=== PATIENT | female | born 1970 | race Caucasian/White ===

== ENCOUNTER 2019-08-29 10:58 | Inpatient (IN) | payer OTHER, MEDICAID, SELFPAY ==
[2019-08-29] VITALS (12 sets, daily range): BP systolic 114–149; BP diastolic 59–84; PULSE 99–133; RESP 18–29; TEMP 37.7–38.9; O2SAT 93–97; BMI 42.0
--- NOTE | 2019-08-29 11:08 | ED_ITS ---
HPI - Chest Pain General Chief Complaint: Upper Respiratory Symptoms Stated Complaint: Chest/Back Pain Time Seen by Provider: 08/29/19 11:06 Source: patient, EMS and old records reviewed Mode of arrival: EMS Limitations: no limitations History of Present Illness HPI narrative: 49-year-old female comes emergency department complaint of fevers that started today. Patient start having chills last night. She has pain in the left side of her chest kind of in the upper into the back. She states constant. The little bit positional she sits in a certain way it makes it more comfortable. She has felt short of breath. She has had a runny nose and a cough which she states has been nonproductive. She has felt a little bit wheezy. No nausea, no vomiting, no diarrhea constipation. No urinary changes she has not had frequency, dysuria urgency. She has chronic right hip and takes anti-inflammatories for this. She has not any swelling in her extremities. No rashes or skin changes. Patient states she has a history of hypertension which she is not taking medication for, she states she doesn't trust pills. She takes an anti-inflammatory pill for her right hip and has a history of SCFE. Patient states that she had surgery on her hip at age 9 and 13, she has had a tubal ligation and kidney stones. She does smoke tobacco about half pack daily, no alcohol or illicit. Her primary care is Dr. Mcgill. Related Data Home Medications Medication Instructions Recorded Confirmed No Known Home Medications 08/29/19 08/29/19 Allergies Allergy/AdvReac Type Severity Reaction Status Date / Time No Known Drug Allergies Allergy Verified 08/29/19 11:13 Review of Systems Review of Systems ROS Unobtainable: All systems reviewed & are unremarkable except as noted in HPI and below Patient History Medical History (Updated 08/29/19 @ 12:02 by Lauren Todd DO) Chronic right hip pain (Acute) H/O slipped capital femoral epiphysis (SCFE) (Acute) Hypertension (Acute) Social History household members: family Smoking Status: Current every day smoker alcohol intake: former Smoking Status: Current every day smoker Substance Use Type: does not use Exam Narrative Exam Narrative: GEN: Obese female, alert and oriented x 3, patient appears to be in mild distress. Patient feels mildly warm to touch. HEENT: Atraumatic, pupils are equal round reactive to light, extraocular movements are intact, nares are clear, TMs are clear with no fluid, there is no conjunctival pallor. Throat is clear without any exudates, erythema, tonsillar enlargement or uvular deviation HEART: Regular rate and rhythm without murmur, clicks, rubs. Chest is nontender to palpation. LUNGS:Lungs clear to auscultation, no wheezes, rales, crackles, chest moves symmetrically, no tachypnea. No accessory muscle use. ABD:bowel sounds normal, soft, non-tender, no guarding, rebound, rigidity, no masses noted, no hepatosplenomegaly :No CVA tenderness BACK: No cervical, thoracic or lumbar vertebral point tenderness. MSCL: Non-tender. NEURO:CN 2-12 intact, sensation normal SKIN: No rash. No petechiae. No erythema. Initial Vital Signs Initial Vital Signs: Vital Signs Temperature 100.3 F H 08/29/19 11:00 Pulse Rate 104 H 08/29/19 11:00 Respiratory Rate 18 08/29/19 11:00 Blood Pressure 149/84 H 08/29/19 11:00 Pulse Oximetry 94 08/29/19 11:00 Course Orders Ordered: ED Orders 08/29/19 11:05 Influenza A & B (PCR) Stat 08/29/19 11:18 XR chest 2V Stat 08/29/19 11:26 Urine Culture Stat Urine Microscopic Stat 08/29/19 12:03 Complete Blood Count AUTO DIFF Stat Comprehensive Metabolic Panel Stat Lactate (Lactic Acid) Stat Troponin & CK Cardiac Panel Stat 08/29/19 13:21 Blood Culture Stat Acetaminophen (Tylenol) 650 mg PO Q6HR PRN PRN Reason: Fever/Mild Pain (1-3) Heparin Sodium (Porcine) (Heparin) 5,000 unit SUBCUT BID KENNETH Dextrose/Sodium Chloride (Dextrose 5%-0.9% Ns) 1,000 mls @ 100 mls/hr IV CONT KENNETH Last Admin: 08/29/19 17:47 Dose: 100 mls/hr Documented by: KKNOTT Ceftriaxone Sodium/Dextrose (Rocephin) 1 gm in 50 mls @ 100 mls/hr IV Q24H KENNETH Azithromycin 500 mg/ Dextrose 250 mls @ 250 mls/hr IV Q24H KENNETH Ibuprofen (Advil) 600 mg PO Q6HR PRN PRN Reason: Fever/Mild Pain (1-3) Ketorolac Tromethamine (Toradol) 15 mg IV Q6HR PRN PRN Reason: Pain, Moderate (4-6) Stop: 09/03/19 17:35 Ondansetron HCl (Zofran) 4 mg IV Q8HR PRN PRN Reason: Nausea And Vomiting Discontinued Medications Acetaminophen (Tylenol) 650 mg PO NOW ONE Stop: 08/29/19 11:27 Last Admin: 08/29/19 12:38 Dose: 650 mg Documented by: DAVID Azithromycin (Zithromax) 500 mg PO NOW ONE Stop: 08/29/19 12:29 Last Admin: 08/29/19 13:20 Dose: 500 mg Documented by: SOFIA Sodium Chloride (Normal Saline 0.9%) 1,000 mls @ 1,000 mls/hr IV BOLUS ONE Stop: 08/29/19 12:17 Last Infusion: 08/29/19 14:48 Dose: 0 mls/hr Documented by: Admin: 08/29/19 12:38 Dose: 1,000 mls/hr Documented by: DAVID Ceftriaxone Sodium/Dextrose (Rocephin) 1 gm in 50 mls @ 100 mls/hr IV NOW ONE Stop: 08/29/19 12:57 Last Infusion: 08/29/19 14:35 Dose: 0 mls/hr Documented by: Admin: 08/29/19 13:19 Dose: 100 mls/hr Documented by: SOFIA Vital Signs Vital signs: Vital Signs - 8 hr 08/29/19 11:00 08/29/19 11:56 08/29/19 12:12 Temperature 100.3 F H Pulse Rate 104 H 105 H 106 H Respiratory Rate 18 29 H 24 Blood Pressure 149/84 H Blood Pressure [Right Arm] 140/70 130/60 Pulse Oximetry 94 95 08/29/19 13:36 08/29/19 14:30 08/29/19 14:48 Temperature 100.0 F H 100.0 F H Pulse Rate 133 H 99 H Respiratory Rate 29 H 22 Blood Pressure Blood Pressure [Right Arm] 132/71 Pulse Oximetry 93 96 MDM - Chest Pain Lab Data Attestation: I reviewed the patient's lab results. Result diagrams: 08/29/19 12:03 08/29/19 12:03 Labs: Lab Results 08/29/19 08/29/19 08/29/19 Range/Units 11:05 11:26 12:03 WBC 19.3 H (4.5-11.0) X10^3/uL RBC 5.17 (4.0-5.2) X10^6/uL Hgb 14.3 (12.0-16.0) g/dL Hct 42.2 (36-46) % MCV 81.7 (80-100) fL MCH 27.6 (26-34) PG MCHC 33.8 (30-36) % RDW 15.8 H (11.6-14.8) % Plt Count 241 (150-400) X10^3/uL Neut % (Auto) 93.3 H (50-75) % Lymph % (Auto) 3.9 L (25-40) % [place] % (Auto) 2.5 L (3-14) % Eos % (Auto) 0.0 L (2-4) % Baso % (Auto) 0.3 (0-2) % Neut # (Auto) 59663 H (2674-2017) /uL Lymph # (Auto) 800 L (6783-4691) /uL [place] # (Auto) 500 (0-900) /uL Eos # (Auto) 0 (0-450) /uL Baso # (Auto) 100 (0-100) /uL Sodium (137-145) mmol/L Potassium (3.4-5.1) mmol/L Chloride (98-107) mmol/L Carbon Dioxide (22-32) mmol/L BUN (7-17) mg/dL Creatinine (0.52-1.04) mg/dL Estimated GFR (>60) mL/min BUN/Creatinine Ratio (6-22) Glucose (70-100) mg/dL Lactate (0.7-2.1) mmol/L Calcium (8.4-10.2) mg/dL Total Bilirubin (0.2-1.3) mg/dL AST (14-36) IU/L ALT (<35) IU/L Alkaline Phosphatase (38-126) U/L Total Creatine Kinase (30-135) U/L CK-MB (CK-2) CK-MB (CK-2) Rel Index Troponin I (0.01-0.034) ng/mL Total Protein (6.3-8.2) g/dL Albumin (3.5-5.0) g/dL Globulin (1.7-4.1) g/dL Albumin/Globulin Ratio (1.0-2.8) Urine RBC 5-10/hpf H (0-5/HPF) Urine WBC 0-1/hpf (0-5/HPF) Ur Squamous Epith Cells 1-5 /hpf (0-5/HPF) Urine Bacteria Few (2-10) H (None) Urine Mucus 1+ H (Negative) Ur Culture Indicated? Specimen cultured Influenza A (RT-PCR) Flu a negative (NEGATIVE) Influenza B (RT-PCR) Flu b negative (NEGATIVE) 08/29/19 08/29/19 Range/Units 12:03 12:03 WBC (4.5-11.0) X10^3/uL RBC (4.0-5.2) X10^6/uL Hgb (12.0-16.0) g/dL Hct (36-46) % MCV (80-100) fL MCH (26-34) PG MCHC (30-36) % RDW (11.6-14.8) % Plt Count (150-400) X10^3/uL Neut % (Auto) (50-75) % Lymph % (Auto) (25-40) % [place] % (Auto) (3-14) % Eos % (Auto) (2-4) % Baso % (Auto) (0-2) % Neut # (Auto) (8873-2345) /uL Lymph # (Auto) (0847-8680) /uL [place] # (Auto) (0-900) /uL Eos # (Auto) (0-450) /uL Baso # (Auto) (0-100) /uL Sodium 138 (137-145) mmol/L Potassium 3.9 (3.4-5.1) mmol/L Chloride 104 (98-107) mmol/L Carbon Dioxide 22 (22-32) mmol/L BUN 12 (7-17) mg/dL Creatinine 0.50 L (0.52-1.04) mg/dL Estimated GFR > 60.0 (>60) mL/min BUN/Creatinine Ratio 24.0 H (6-22) Glucose 129 H (70-100) mg/dL Lactate 1.7 (0.7-2.1) mmol/L Calcium 8.9 (8.4-10.2) mg/dL Total Bilirubin 1.3 (0.2-1.3) mg/dL AST 24 (14-36) IU/L ALT 25 (<35) IU/L Alkaline Phosphatase 71 (38-126) U/L Total Creatine Kinase 86 (30-135) U/L CK-MB (CK-2) TNP CK-MB (CK-2) Rel Index TNP Troponin I < 0.012 (0.01-0.034) ng/mL Total Protein 7.2 (6.3-8.2) g/dL Albumin 4.2 (3.5-5.0) g/dL Globulin 3.0 (1.7-4.1) g/dL Albumin/Globulin Ratio 1.4 (1.0-2.8) Urine RBC (0-5/HPF) Urine WBC (0-5/HPF) Ur Squamous Epith Cells (0-5/HPF) Urine Bacteria (None) Urine Mucus (Negative) Ur Culture Indicated? Influenza A (RT-PCR) (NEGATIVE) Influenza B (RT-PCR) (NEGATIVE) Urine Dip Bedside Urine Glucose Negative Bedside Urine Bilirubin + 1 Bedside Urine Ketone - Negative Urine Specific [place] 1.015 Bedside Urine Occult Blood + Bedside Urine pH 7.0 Bedside Urine Protein +/- 15 Bedside Urine Urobilinogen +/- 1mg Bedside Urine Nitrite - Negative Bedside Urine Leukocytes +/- 15 Esterase Imaging Data Chest x-ray: Radiologist's impression: [address] [address] XRay Report Signed Patient: Kyler Singleton#: [id number] : 1970Acct:[id number] Age/Sex: 49 / FDate of Service: 08/29/19 Loc: ED Accession Number: [id number] Procedure: XR chest 2V Ordering Provider: Lauren Todd D.O. PROCEDURE: XR CHEST 2V INDICATIONS: fever, pain chest/back, cough TECHNIQUE: 2 views of the chest were acquired. COMPARISON: None. FINDINGS: Surgical changes and devices: None. Lungs and pleura: Subtle airspace disease is identified at the left lung base adjacent to the diaphragm. No lobar consolidation, effusion, or pneumothorax is evident. Mediastinum: Mediastinal contours are normal. Heart size is normal. Bones and chest wall: No suspicious bony abnormalities. Soft tissues appear unremarkable. IMPRESSION: Left basilar pneumonia versus atelectasis. Followup imaging is recommended in 4-6 weeks to document complete resolution. Dictated by: Jayden Olivia M.D. on 08/29/2019 at 10:45 Approved by: Jayden Olivia M.D. on 08/29/2019 at 10:45 ECG Data Attestation: I personally reviewed and interpreted this ECG as follows: Prior ECG tracings: not available for review Interpretation: Sinus tachycardia rate of 104 P are 124 QRS of 103 QTC of 372. Patient has RSR in 2 with a Q-wave in 3 and AVF. No priors available for comparison. MDM Narrative Medical decision making narrative: Patient comes in fever of 100.3 with a new onset of chills, cough and feeling unwell. Patient's white count 19, temperature improved. Patient has not been hypoxic but would watch her in the department heart rate goes up to 1/3 inch comes quite tachypneic. Patient does smoke. Influenza was negative. Chest x-ray is positive for pneumonia. Tropon in is negative. Discussed with Dr. Dennis. Discharge Plan Departure Patient Disposition: Admitted as Observation Clinical Impression: Pneumonia Discharge Date/Time: 08/29/19 15:45 Admit Date/Time: 08/29/19 14:51 Admit Provider: Cecil Dennis
--- NOTE | 2019-08-29 11:18 | DI.RAD.S_ITS ---
PROCEDURE: XR CHEST 2V INDICATIONS: fever, pain chest/back, cough TECHNIQUE: 2 views of the chest were acquired. COMPARISON: None. FINDINGS: Surgical changes and devices: None. Lungs and pleura: Subtle airspace disease is identified at the left lung base adjacent to the diaphragm. No lobar consolidation, effusion, or pneumothorax is evident. Mediastinum: Mediastinal contours are normal. Heart size is normal. Bones and chest wall: No suspicious bony abnormalities. Soft tissues appear unremarkable. IMPRESSION: Left basilar pneumonia versus atelectasis. Followup imaging is recommended in 4-6 weeks to document complete resolution. Dictated by: Jayden Olivia M.D. on 08/29/2019 at 10:45 Approved by: Jayden Olivia M.D. on 08/29/2019 at 10:45
[2019-08-29 12:04] LABS: Influenza A - CEPHEID Flu A NEGATIVE (NEGATIVE); Influenza B - CEPHEID Flu B NEGATIVE (NEGATIVE)
[2019-08-29 12:06] LABS: RBC Urine 5-10/HPF (0-5/HPF); Squamous Epithelial Cell Urine 1-5 /HPF (0-5/HPF); WBC Urine 0-1/HPF (0-5/HPF)
[2019-08-29 12:07] LABS: Bacteria Urine Few (2-10); Culture Indicated Urine Specimen Cultured; Mucus Urine 1+ (Negative)
[2019-08-29 12:13] LABS: Add Manual Diff / Slide Review NO; Basophils Absolute Auto 100 /uL (0-100); Basophils Percent Auto 0.3 % (0-2); Eosinophils Absolute Auto 0 /uL (0-450); Hematocrit 42.2 % (36-46); Hemoglobin 14.3 g/dL (12.0-16.0); Lymphocytes Absolute Auto 800 /uL (1100-4500); Lymphocytes Percent Auto 3.9 % (25-40); Mean Corpuscular HGB Conc 33.8 % (30-36); Mean Corpuscular Hemoglobin 27.6 PG (26-34); Mean Corpuscular Volume 81.7 fL (80-100); Monocytes Absolute Auto 500 /uL (0-900); Monocytes Percent Auto 2.5 % (3-14); Neutrophils Absolute Auto 18000 /uL (1500-7000); Neutrophils Percent Auto 93.3 % (50-75); Platelet Count 241 X10^3/uL (150-400); Red Blood Cell Count 5.17 X10^6/uL (4.0-5.2); Red Cell Distribution Width 15.8 % (11.6-14.8); White Blood Cell Count 19.3 X10^3/uL (4.5-11.0)
[2019-08-29 12:25] LABS: Lactate (Lactic Acid) 1.7 mmol/L (0.7-2.1)
[2019-08-29 12:27] LABS: Alanine Aminotransferase 25 IU/L (<35); Albumin 4.2 g/dL (3.5-5.0); Albumin Globulin Ratio 1.4 (1.0-2.8); Alkaline Phosphatase 71 U/L (38-126); Aspartate Aminotransferase 24 IU/L (14-36); Bilirubin Total 1.3 mg/dL (0.2-1.3); Blood Urea Nitrogen 12 mg/dL (7-17); Calcium 8.9 mg/dL (8.4-10.2); Carbon Dioxide 22 mmol/L (22-32); Chloride 104 mmol/L (98-107); Creatine Kinase 86 U/L (30-135); Estimated Glomerular Filt Rate > 60.0 mL/min (>60); Glucose 129 mg/dL (70-100); HEMOLYSIS 19 (0-50); Potassium 3.9 mmol/L (3.4-5.1); Sodium 138 mmol/L (137-145); Total Protein 7.2 g/dL (6.3-8.2)
[2019-08-29 12:38] LABS: Troponin I < 0.012 ng/mL (0.01-0.034)
[2019-08-29] MEDS: SODIUM CHLORIDE 0.9% 1,000 ML 1000 ML IV (12:38)
[2019-08-29] MEDS: ACETAMINOPHEN 325 MG TABLET 650 MG PO (12:38)
[2019-08-29] MEDS: CEFTRIAXONE 1 GM/50 ML FROZ.PIGGY IV (13:19)
[2019-08-29] MEDS: AZITHROMYCIN 250 MG TABLET 500 MG PO (13:20)
--- NOTE | 2019-08-29 17:33 | P.HP_ITS ---
History of Present Illness History of Present Illness Date Patient Seen: 08/29/19 Time Patient Seen: 17:33 Chief complaint: Chest/Back Pain Narrative: Samantha Singleton is a 49-year-old female with past medical history of hypertension, and right hip pain (SCFE) who presented with fevers and left-sided chest pain. Her fevers and left-sided chest pain started last night. Her chest pain is in the lower /lateral side of her left chest and radiates into the back. It is constant and when she lays on her left side is improved, she feels that is also somewhat worse when she takes a deep breath. She feels short of breath primarily due to the pain. She has had a runny nose and productive cough with yellow sputum over the past 5 days. She tried some [id number] pain relief at home but this did not help her symptoms much. She denies any nausea, vomiting, diarrhea, or constipation. She has had no urinary frequency or dysuria. She did not get her flu shot this year and she denies recent sick contacts. She has had no travel overseas. She denies diaphoresis. In the emergency room she had a borderline temperature to 100.3 F, and she was tachycardic when ambulatory but not hypoxic. She was mildly tachypneic at times into the mid 20s. Chest x-ray showed a left basilar pneumonia. Her laboratories revealed low leukocytosis to 19.3 with 93% neutrophils, chemistries show a mildly elevated glucose at 1:29 a.m. but was otherwise unremarkable. Troponin was negative. Flu swab was negative. UA showed 0 WBCs but was positive for leuk esterase, and the specimen was cultured. Patient was admitted under observation status for pneumonia. Patient History Medical History (Updated 08/29/19 @ 12:02 by Lauren Todd DO) Chronic right hip pain (Acute) H/O slipped capital femoral epiphysis (SCFE) (Acute) Hypertension (Acute) Family & Social History Social History: household members family Prior Living Arrangements House Safety & Behavioral: Feels Safe in Current Yes Environment Been Physically Hurt or No Threatened By a Person Suicide Plan Description No Plan Tobacco & Substance use: Tobacco type cigarettes Smoking Status Current every day smoker alcohol intake former alcohol intake frequency 0-2 drinks per day Substance Use Type does not use Meds Home Medications and Allergies Home Medications Medication Instructions Recorded Confirmed Type No Known Home Medications 08/29/19 08/29/19 History Allergies Allergy/AdvReac Type Severity Reaction Status Date / Time No Known Drug Allergies Allergy Verified 08/29/19 11:13 Review of Systems Review of Systems Narrative: All other systems reviewed with the patient and are negative unless otherwise stated. Exam Vital Signs (past 8 hours): - 08/29/19 11:00 08/29/19 11:56 08/29/19 12:12 Temperature 100.3 F H Pulse Rate 104 H 105 H 106 H Respiratory Rate 18 29 H 24 Blood Pressure 149/84 H Blood Pressure [Right Arm] 140/70 130/60 Pulse Oximetry 94 95 08/29/19 13:36 08/29/19 14:30 08/29/19 14:48 Temperature 100.0 F H 100.0 F H Pulse Rate 133 H 99 H Respiratory Rate 29 H 22 Blood Pressure Blood Pressure [Right Arm] 132/71 Pulse Oximetry 93 96 08/29/19 15:00 08/29/19 16:08 08/29/19 17:20 Temperature 102.0 F H 99.8 F H Pulse Rate 100 H 100 H Respiratory Rate 28 H 18 Blood Pressure 123/68 Blood Pressure [Right Arm] 114/59 L Pulse Oximetry 96 97 Oxygen Delivery Method Room Air Oxygen Flow Rate 0 Narrative Exam Narrative: GENERAL APPEARANCE: Acutely ill-appearing female, in left l ateral recumbent position, breathing shallowly but not in acute distress. SKIN: Inspection of the skin reveals no rashes, ulcerations or petechiae. HEENT: The sclerae were anicteric and conjunctivae were pink and moist. Extraocular movements were intact and pupils were equal, round with normal accom modation. External inspection of the ears and nose showed no scars, lesions, or masses. Lips, teeth, and gums showed normal mucosa. The oral mucosa was moist and the posterior pharynx is unremarkable. NECK: Supple and symmetric. There was no thyroid enlargement, and no tenderness, or masses were felt. No cervical adenopathy was palpable. CHEST: Normal AP diameter and normal contour without any kyphoscoliosis. LUNGS: Auscultation of the lungs revealed no wheezes, rhonchi, or rales. She had diminished breath sounds at the bilateral lung bases. CARDIOVASCULAR: There was a regular rate and rhythm without any murmurs, gallops, rubs. Peripheral pulses were 2+ and symmetric. ABDOMEN: Soft and nontender with normal bowel sounds. No ascites was noted. MUSCULOSKELETAL: There was no tenderness or effusions noted. Muscle strength and tone were normal. EXTREMITIES: No cyanosis, clubbing or edema. NEUROLOGIC: Alert and oriented x 3 however she is slow and groggy, she appears somewhat confused. Strength is +5/5 in the Upper Extremities and Lower Extremities Bilaterally but generally weak. Sensation to touch was normal bilaterally. Objective Imaging Chest x-ray: My impression: Left basilar pneumonia Radiologist's impression: IMPRESSION: Left basilar pneumonia versus atelectasis. Followup imaging is recommended in 4-6 weeks to document complete resolution. Labs Result Diagrams: 08/29/19 12:03 08/29/19 12:03 Labs: Laboratory Results - last 24 hr 08/29/19 08/29/19 08/29/19 11:05 11:26 12:03 WBC 19.3 H RBC 5.17 Hgb 14.3 Hct 42.2 MCV 81.7 MCH 27.6 MCHC 33.8 RDW 15.8 H Plt Count 241 Neut % (Auto) 93.3 H Lymph % (Auto) 3.9 L [place] % (Auto) 2.5 L Eos % (Auto) 0.0 L Baso % (Auto) 0.3 Neut # (Auto) 41648 H Lymph # (Auto) 800 L [place] # (Auto) 500 Eos # (Auto) 0 Baso # (Auto) 100 Sodium Potassium Chloride Carbon Dioxide BUN Creatinine Estimated GFR BUN/Creatinine Ratio Glucose Lactate Calcium Total Bilirubin AST ALT Alkaline Phosphatase Total Creatine Kinase CK-MB (CK-2) CK-MB (CK-2) Rel Index Troponin I Total Protein Albumin Globulin Albumin/Globulin Ratio Urine RBC 5-10/hpf H Urine WBC 0-1/hpf Ur Squamous Epith Cells 1-5 /hpf Urine Bacteria Few (2-10) H Urine Mucus 1+ H Ur Culture Indicated? Specimen cultured Influenza A (RT-PCR) Flu a negative Influenza B (RT-PCR) Flu b negative 08/29/19 08/29/19 12:03 12:03 WBC RBC Hgb Hct MCV MCH MCHC RDW Plt Count Neut % (Auto) Lymph % (Auto) [place] % (Auto) Eos % (Auto) Baso % (Auto) Neut # (Auto) Lymph # (Auto) [place] # (Auto) Eos # (Auto) Baso # (Auto) Sodium 138 Potassium 3.9 Chloride 104 Carbon Dioxide 22 BUN 12 Creatinine 0.50 L Estimated GFR > 60.0 BUN/Creatinine Ratio 24.0 H Glucose 129 H Lactate 1.7 Calcium 8.9 Total Bilirubin 1.3 AST 24 ALT 25 Alkaline Phosphatase 71 Total Creatine Kinase 86 CK-MB (CK-2) TNP CK-MB (CK-2) Rel Index TNP Troponin I < 0.012 Total Protein 7.2 Albumin 4.2 Globulin 3.0 Albumin/Globulin Ratio 1.4 Urine RBC Urine WBC Ur Squamous Epith Cells Urine Bacteria Urine Mucus Ur Culture Indicated? Influenza A (RT-PCR) Influenza B (RT-PCR) Assessment & Plan Assessment & Plan narrative: Samantha Singleton is a 49-year-old female with past medical history of hypertension (not currently on medical therapy) who was adm itted under observation status for pneumonia at this time. 1. Community-acquired pneumonia -patient not technically with fever but temp of 100.3 F. she appears acutely ill and has symptoms of pneumonia including productive cough, pleuritic chest pain, leukocytosis with a left shift, and an infiltrate on radiographic imaging. Her white blood cell count is further elevated. She is not hypoxic at this time. Her curb 65 is 1, however she appears very lethargic and acutely ill, in she is not keeping up with adequate intake currently. Her lactate is 1.7 and the rest of her chemistries are unrem arkable. -continue ceftriaxone azithromycin -obtain full respiratory panel -supplemental oxygen for O2 less than 90% -supportive care with antipyretics, Toradol for more severe pain -continue IV fluids -add procalcitonin to admission labs and continue to follow. 2. History of hypertension -patient with reported hypertension but not on medical therapy as she does not like taking medications. Patient is currently normotensive which may be in the setting of her infection. 3. Chronic right hip pain /SCFE, stable - continue home pain regimen DVT: Heparin subcu Code: Full Dispo: Admitted under observation status Quality VTE Deep Vein Thrombosis/Pulmonary Embolism Present on Admission: No
[2019-08-29] MEDS: DEXTROSE 5%-0.9% NS 1,000 ML 100 ML IV (17:47)
[2019-08-29] MEDS: IBUPROFEN 600 MG TABLET PO (18:50)
[2019-08-29 19:02] LABS: Procalcitonin 1.82 ng/mL (<0.5)
[2019-08-29] MEDS: HEPARIN 5,000 UNIT/ML VIAL 5000 UNIT SUBCUT (21:26)
[2019-08-29 23:37] LABS: Adenovirus Not Detected (Not Detect); Bordetella pertussis Not Detected (Not Detect); Chlamydophila pneumoniae Not Detected (Not Detect); Coronavirus 229E Not Detected (Not Detect); Coronavirus HKU1 Not Detected (Not Detect); Coronavirus NL 63 Not Detected (Not Detect); Coronavirus OC43 Not Detected (Not Detect); Human Metapneumovirus Not Detected (Not Detect); Human Rhinovirus/Enterovirus Not Detected (Not Detect); Influenza A Not Detected (Not Detect); Influenza B Not Detected (Not Detect); Mycoplasma pneumoniae Not Detected (Not Detect); Parainfluenza Virus 1 Not Detected (Not Detect); Parainfluenza Virus 2 Not Detected (Not Detect); Parainfluenza Virus 3 Not Detected (Not Detect); Parainfluenza Virus 4 Not Detected (Not Detect); Respiratory Syncytial Virus Not Detected (Not Detect)
[2019-08-30] VITALS (10 sets, daily range): BP systolic 135–157; BP diastolic 70–92; PULSE 79–88; RESP 16–18; TEMP 36.4–37.4; O2SAT 94–99
--- NOTE | 2019-08-30 01:45 | PC.NURSE ---
Patient is oriented but drowsy; has been asleep since prior to shift change. Breath sounds diminished but CTA with RA sat of 99%. States she does get SOB with exertion. Has cough but is non productive. HRR. BP 140/70 which patient states is baseline. Denies nausea. BT present and is passing flatus; does state she has not had much of an appetite recently. Voiding on toilet and denies dysuria, frequency or urgency; urine is clear but dark vanessa. Able to turn self in bed and walks to bathroom with cane and SBA; has limping type gait due to chronic hip problems. States right hip pain is currently 5/10 with movement but declines offer of pain medication as states pain is tolerable. Wearing bilateral calf SCD's. Fall risk score is moderate; bed alarm is activated. Patient's mom, Marcos, rooming in.
[2019-08-30] MEDS: DEXTROSE 5%-0.9% NS 1,000 ML 100 ML IV ×2 (03:49→18:28)
[2019-08-30 04:58] LABS: Acinetobacter baumannii Not Detected (Not Detect); E. coli Not Detected (Not Detect); Enterobacteriaceae species Not Detected (Not Detect); Enterococcus species Not Detected (Not Detect); Listeria monocytogenes Not Detected (Not Detect); Staphylococcus species Not Detected (Not Detect); Streptococcus agalactiae (Gr B Not Detected (Not Detect); Streptococcus pneumonia Detected (Not Detect); Streptococcus pyogenes (Gr A) Not Detected (Not Detect); Streptococcus species Detected (Not Detect)
[2019-08-30 04:59] LABS: Candida albicans Not Detected (Not Detect); Candida glabrata Not Detected (Not Detect); Candida krusei Not Detected (Not Detect); Candida parapsilosis Not Detected (Not Detect); Candida tropicalis Not Detected (Not Detect); Enterobacter cloacae complex Not Detected (Not Detect); Haemophilus influenzae Not Detected (Not Detect); Neisseria meningitidis Not Detected (Not Detect); Proteus species Not Detected (Not Detect); Pseudomonas aeruginosa Not Detected (Not Detect); Serratia marcescens Not Detected (Not Detect)
[2019-08-30] MEDS: ACETAMINOPHEN 325 MG TABLET 650 MG PO ×2 (06:25→12:31)
[2019-08-30 07:07] LABS: Add Manual Diff / Slide Review NO; Basophils Absolute Auto 100 /uL (0-100); Basophils Percent Auto 0.3 % (0-2); Eosinophils Absolute Auto 0 /uL (0-450); Hematocrit 38.5 % (36-46); Hemoglobin 12.8 g/dL (12.0-16.0); Lymphocytes Absolute Auto 1000 /uL (1100-4500); Lymphocytes Percent Auto 5.6 % (25-40); Mean Corpuscular HGB Conc 33.2 % (30-36); Mean Corpuscular Hemoglobin 27.3 PG (26-34); Mean Corpuscular Volume 82.2 fL (80-100); Monocytes Absolute Auto 500 /uL (0-900); Monocytes Percent Auto 2.9 % (3-14); Neutrophils Absolute Auto 15700 /uL (1500-7000); Neutrophils Percent Auto 91.2 % (50-75); Platelet Count 207 X10^3/uL (150-400); Red Blood Cell Count 4.68 X10^6/uL (4.0-5.2); White Blood Cell Count 17.2 X10^3/uL (4.5-11.0)
--- NOTE | 2019-08-30 07:08 | DI.ECHO.S_ITS ---
[facility]---------+ [facility] +---------+ : : [address] [place] : : : : [id number] : : : : Phone: [phone]+ Echocardiogram Report + + :Name: NORMA MEDRANO Study Date: 08/30/2019 Height: 64 in : :[facility] Weight: 232 lb : : Gender: Female BSA: 2.1 m2 : :: 1970 Age: 49 yrs BP: 135/75 mmHg: :Reason For Study: Endocarditis : : Performed By: Callie Rocha : :Referring: KOLBY GRADY : + + Interpretation Summary Normal both left and right ventricle size and function. The ejection fraction is 60-65%. Borderline left atrial enlargement. No valvular abnormality. No vegetation seen. Procedure: A two-dimensional transthoracic echocardiogram with color flow and Doppler was performed. The study quality was technically adequate. There is no prior echocardiogram noted for this patient. The patient was in normal sinus rhythm during the exam. Left Ventricle: The left ventricle is normal in size, wall thickness, and systolic function without any focal wall motion abnormalities. The ejection fraction is estimated to be 60-65%. Diastolic function could not be accurately assessed due to unobtainable data. Right Ventricle: The right ventricle grossly appears normal in size with probable normal systolic function. Atria: Borderline left atrial enlargement. Right atrial size is normal. Mitral Valve: The mitral valve is normal in structure and function. There is no mitral regurgitation noted. Aortic Valve: The aortic valve opens well. No aortic regurgitation is present. Tricuspid Valve: The tricuspid valve is normal in structure and function. No tricuspid regurgitation. Pulmonic Valve: The pulmonic valve is not well seen, but is grossly normal. There is no pulmonic valvular regurgitation. Great Vessels: The aortic root is normal size. The aortic arch is normal in size. The IVC is of normal diameter and collapses greater than 50% with a sniff. This suggests a low right atrial pressure of 3 mm Hg. Pericardium/ Pleura There is no pericardial effusion. There is no pleural effusion. MMode/2D Measurements & Calculations LVIDd: 5.5 cm Ao root diam: 3.0 cm LVIDs: 2.8 cm Aortic Jxn: 2.7 cm FS: 49.4 % Ao Arch Diam (Prox Trans): 3.0 cm EPSS: 0.54 cm IVSd: 0.86 cm LVPWd: 1.0 cm LV rivera. diameter/BSA (cm/m^2): 2.6 LV sys. diameter/BSA (cm/m^2): 1.3 LA dimension: 4.3 cm RA long axis: 4.9 cm LA A2 area: 19.6 cm2 RA area: 16.0 cm2 LA A4 area: 24.9 cm2 RA vol: 44.1 ml LA length (vol): 5.7 cm RA : 21.2 ml/m2 LA vol: 72.5 ml IVC diam: 1.7 cm LA vol index: 34.8 ml/m2 Doppler Measurements & Calculations Ao V2 max: 208.0 cm/sec MV E max torres: 108.8 cm/sec Ao V2 mean: 134.3 cm/sec MV A max torres: 97.4 cm/sec Ao max P.3 mmHg MV E/A: 1.1 Ao mean P.4 mmHg Med Peak E' Torres: 8.8 cm/sec Ao V2 VTI: 41.0 cm E/E' med: 12.3 Lat Peak E' Torres: 8.1 cm/sec E/E' lat: 13.4 E/e' average: 12.9 MV dec time: 0.28 sec PA V2 max: 109.4 cm/sec PA V2 mean: 77.2 cm/sec PA mean P.7 mmHg PA Accel Time: 0.20 sec Electronically signed by: Renetta Malloy on Reading Physician:08/30/2019 05:24 PM
[2019-08-30 07:22] LABS: Blood Urea Nitrogen 11 mg/dL (7-17); Calcium 8.3 mg/dL (8.4-10.2); Carbon Dioxide 24 mmol/L (22-32); Chloride 107 mmol/L (98-107); Estimated Glomerular Filt Rate > 60.0 mL/min (>60); Glucose 152 mg/dL (70-100); HEMOLYSIS < 15 (0-50); Potassium 3.2 mmol/L (3.4-5.1); Sodium 136 mmol/L (137-145)
[2019-08-30 07:40] LABS: Procalcitonin 6.82 ng/mL (<0.5)
[2019-08-30] MEDS: VANCOMYCIN 2,000 MG/400 ML PIGGYBACK 200 MG IV (08:18)
[2019-08-30] MEDS: HEPARIN 5,000 UNIT/ML VIAL 5000 UNIT SUBCUT ×2 (09:15→21:18)
--- NOTE | 2019-08-30 12:04 | PC.NURSE ---
Addendum entered by Fauzia Mahmood R.N. 08/30/19 13:44: Pt given tylenol for complaints of headache and helpful. Resting comfortable. Pt is on tele. Resting comfortably. Original Note: 0900- Pt is groggy but awakens easily. Up to the bathroom x1. Pt has a bad hip so she does use a walker to ambulate. LS with crackles to l.upper and l.lower lobes, pt does sound congested and has a non productive cough. Per she may be transferring to another facility. Echo is now complete.
[2019-08-30] MEDS: CEFTRIAXONE 2 GM/50 ML FROZ.PIGGY IV (12:31)
--- NOTE | 2019-08-30 14:44 | CM.DANOTE ---
Addendum entered by Nurys Rios LPN 08/31/19 08:44: Reviewed Dr. Dennis's progress note from last night/completed in early evening/08/30. He notes plan for prolonged IV antibiotics and daily blood cultures. Will wait for hospitalist update in Team Rounds and follow accordingly Addendum entered by Nurys Rios LPN 08/30/19 15:04: Checked in now with HUSSEIN Cage. She states that it sounds like pt not transfer...will check in tomorrow if pt is still here and follow according. Pt is up in room to bathroom with assist. She uses a walker at baseline because of her bad hip. Per documentation: she lives with her mother in [place]. Dr. Dennis's progress note for today is not yet available. Original Note: Discharge Planning/Care Management DCP: continued: case received, and discussed in Team Rounds. EMR reviewed. Pt is a 49 year old female who admitted yesterday afternoon to care of hospitalist team. Payer: [facility]/Medicaid PCP: Nkechi Fuentes Admission status: INPT: confirmed by UR HUSSEIN [place]. Dr. Dennis noted in Rounds that initially the dx looked pneumonia/community acquired but he also noted that pt appeared very lethargic and acutely ill last evening. He stated that cultures were growing Gram + bacilli , an ECHO was planned and pt would likely transfer to a higher level of specialty care hospital setting. He planned to discuss this further with pt today and to partner with RN pedro pearl the transfer process. P: follow prn. At this point: transfer. CM Discharge Assessment Start: 08/30/19 14:43 Freq: Status: Active Protocol: Document 08/30/19 14:43 ITV (Rec: 08/30/19 14:44 ITV [id number]) Discharge Planning Assessment Advance Directives? No History Provided By Medical Record Prior Living Arrangements House Household Members family Review Status In Process
[2019-08-30] MEDS: VANCOMYCIN 1,000 MG/200 ML PIGGYBACK 200 MG IV (16:41)
[2019-08-30] MEDS: IBUPROFEN 600 MG TABLET PO (16:49)
--- NOTE | 2019-08-30 19:23 | PM.PN.1 ---
Subjective Subjective Date Patient Seen: 08/30/19 Time Patient Seen: 19:23 Interval history: Samantha Singleton is a 49-year-old female with past medical history of hypertension, and right hip pain (SCFE) who presented with fevers and left-sided chest pain. She was initially admitted for will was considered community-acquired pneumonia only, however her blood cultures grew 4+ Gram Positive Cocci. Speciation is currently pending. Her respiratory panel was positive for strep pneumoniae. She is on ceftriaxone and vancomycin was added today until her cultures can be confirmed as strep pneumo. Exam Vital Signs (past 8 hours): - 08/30/19 11:33 08/30/19 12:22 08/30/19 15:00 Temperature 99.0 F Pulse Rate 86 Respiratory Rate 16 Blood Pressure 142/87 H Pulse Oximetry 96 97 95 08/30/19 15:40 Temperature 99.2 F Pulse Rate 88 Respiratory Rate 18 Blood Pressure 150/87 H Pulse Oximetry 94 Oxygen Delivery Method Room Air Oxygen Flow Rate 0 Narrative Exam Narrative: GENERAL APPEARANCE: Acutely ill-appearing female, laying still in hospital bed, bundled in blankets, breathing shallowly but not in acute distress. SKIN: Inspection of the skin reveals no rashes, ulcerations or petechiae. HEENT: The sclerae were anicteric and conjunctivae were pink and moist. Extraocular movements were intact and pupils were equal, round with normal accommodation. External inspection of the ears and nose showed no scars, lesions, or masses. Lips, teeth, and gums showed normal mucosa. The oral mucosa was moist and the posterior pharynx is unremarkable. NECK: Supple and symmetric. There was no thyroid enlargement, and no tenderness, or masses were felt. No cervical adenopathy was palpable. CHEST: Normal AP diameter and normal contour without any kyphoscoliosis. LUNGS: Auscultation of the lungs revealed no wheezes, rhonchi, or rales. She had diminished breath sounds at the bilateral lung bases. CARDIOVASCULAR: There was a regular rate and rhythm without any murmurs, gallops, rubs. Peripheral pulses were 2+ and symmetric. ABDOMEN: Soft and nontender with normal bowel sounds. No ascites was noted. MUSCULOSKELETAL: There was no tenderness or effusions noted. Muscle strength and tone were normal. EXTREMITIES: No cyanosis, clubbing or edema. NEUROLOGIC: Alert and oriented x 3 however she is slow and groggy, she appears somewhat confused. Strength is +5/5 in the Upper Extremities and Lower Extremities Bilaterally but generally weak. Sensation to touch was normal bilaterally. Objective Labs Result Diagrams: 08/30/19 06:50 08/30/19 06:50 Labs: Laboratory Results - last 24 hr 08/29/19 08/30/19 08/30/19 11:05 06:50 06:50 WBC 17.2 H RBC 4.68 Hgb 12.8 Hct 38.5 MCV 82.2 MCH 27.3 MCHC 33.2 RDW 16.0 H Plt Count 207 Neut % (Auto) 91.2 H Lymph % (Auto) 5.6 L [place] % (Auto) 2.9 L Eos % (Auto) 0.0 L Baso % (Auto) 0.3 Neut # (Auto) 34772 H Lymph # (Auto) 1000 L [place] # (Auto) 500 Eos # (Auto) 0 Baso # (Auto) 100 Sodium 136 L Potassium 3.2 L Chloride 107 Carbon Dioxide 24 BUN 11 Creatinine 0.50 L Estimated GFR > 60.0 BUN/Creatinine Ratio 22.0 Glucose 152 H Calcium 8.3 L Procalcitonin A. baumannii (PCR) Chlamy pneumoniae PCR Not detected Adenovirus (PCR) Not detected B.parapertussis DNA PCR Not detected Xin albicans (PCR) C. glabrata (PCR) C. krusei (PCR) C. parapsilosis (PCR) C. tropicalis (PCR) Coronavirus OC43 (PCR) Not detected Coronavirus HKU1 (PCR) Not detected Coronavirus 229E (PCR) Not detected Coronavirus NL63 (PCR) Not detected Enterobacteriac sp PCR E. cloacae complex PCR Enterococcus sp PCR E. coli (PCR) H. influenzae (PCR) Human Metapneumovir PCR Not detected Influenza Type A (PCR) Not detected Influenza Type B (PCR) Not detected Klebsiella oxytoca PCR Klebsiella pneumoniae List. monocytogenes PCR M. pneumoniae (PCR) Not detected N. meningitidis (PCR) Parainfluenza 1 (PCR) Not detected Parainfluenza 2 (PCR) Not detected Parainfluenza 3 (PCR) Not detected Parainfluenza 4 (PCR) Not detected Proteus species (PCR) RSV (PCR) Not detected Entero/Rhino (PCR) Not detected Serratia marcescens PCR Staphylococcus sp PCR Staph aureus (PCR) mecA-Methicil Res Gene Streptococcus sp PCR Group A Strep (PCR) Strep agalactiae (PCR) Strep pneumoniae (PCR) P. aeruginosa (PCR) Martha/B-Vanco Res Genes KPC-Carbap Res Gene PCR 08/30/19 08/30/19 06:50 13:21 WBC RBC Hgb Hct MCV MCH MCHC RDW Plt Count Neut % (Auto) Lymph % (Auto) [place] % (Auto) Eos % (Auto) Baso % (Auto) Neut # (Auto) Lymph # (Auto) [place] # (Auto) Eos # (Auto) Baso # (Auto) Sodium Potassium Chloride Carbon Dioxide BUN Creatinine Estimated GFR BUN/Creatinine Ratio Glucose Calcium Procalcitonin 6.82 H A. baumannii (PCR) Not detected Chlamy pneumoniae PCR Adenovirus (PCR) B.parapertussis DNA PCR Xin albicans (PCR) Not detected C. glabrata (PCR) Not detected C. krusei (PCR) Not detected C. parapsilosis (PCR) Not detected C. tropicalis (PCR) Not detected Coronavirus OC43 (PCR) Coronavirus HKU1 (PCR) Coronavirus 229E (PCR) Coronavirus NL63 (PCR) Enterobacteriac sp PCR Not detected E. cloacae complex PCR Not detected Enterococcus sp PCR Not detected E. coli (PCR) Not detected H. influenzae (PCR) Not detected Human Metapneumovir PCR Influenza Type A (PCR) Influenza Type B (PCR) Klebsiella oxytoca PCR Not detected Klebsiella pneumoniae Not detected List. monocytogenes PCR Not detected M. pneumoniae (PCR) N. meningitidis (PCR) Not detected Parainfluenza 1 (PCR) Parainfluenza 2 (PCR) Parainfluenza 3 (PCR) Parainfluenza 4 (PCR) Proteus species (PCR) Not detected RSV (PCR) Entero/Rhino (PCR) Serratia marcescens PCR Not detected Staphylococcus sp PCR Not detected Staph aureus (PCR) Not detected mecA-Methicil Res Gene Not Reportable Streptococcus sp PCR Detected H Group A Strep (PCR) Not detected Strep agalactiae (PCR) Not detected Strep pneumoniae (PCR) Detected H P. aeruginosa (PCR) Not detected Martha/B-Vanco Res Genes Not Reportable KPC-Carbap Res Gene PCR Not Reportable Assessment & Plan Assessment & Plan narrative: Samantha Singleton is a 49-year-old female with past medical history of hypertension (not currently on medical therapy) who was admitted for community acquired pneumonia, and then noted to have gram positive cocci bacteremia. Pneumonia secondary to strep pneumoniae based on respiratory PCR, blood cultures likely to grow the same, however still pending blood culture speciation. 1. Gram positive cocci bacteremia, acute, present on admission - likely secondary to strep pneumoniae pneumonia given PCR resutls from respiratory panel. However, her blood cultures are not confirmed. TTE today was unremarkable and did not show evidence of a vegetation. She remains on ceftriaxone and vancomycin at this time until her cultures return. - continue ceftriaxone and vancomycin until cultures speciate. - TTE as noted above. - antipyretics with tylenol and motrin as needed. - should cultures not be strep pneumoniae, consider CT imaging and possible transfer for CORINE. - daily blood cultures until negative. 2. Community-acquired pneumonia, secondary to strep pneumoniae based on repiratory panel - patient febrile today to 102 still. she appears acutely ill and has symptoms of pneumonia including productive cough, pleuritic chest pain, leukocytosis with a left shift, and an infiltrate on radiographic imaging. Her white blood cell count is further elevated. She is not hypoxic at this time. Her lactate was 1.7 and the rest of her chemistries are unremarkable. -continue ceftriaxone, and vancomycin as noted above. Azithromycin was discontinued based on available microbiology. -supplemental oxygen for O2 less than 90% -supportive care with antipyretics, Toradol for more severe pain -continue IV fluids -procalcition 6.82, continue to follow. 3. History of hypertension -patient with reported hypertension but not on medical therapy as she does not like taking medications. Patient is currently normotensive which may be in the setting of her infection. 4. Chronic right hip pain /SCFE, stable - continue home pain regimen DVT: HSQ Code: Full Dispo: Changed to inpatient. Patient will need prolonged antibiotic therapy and daily blood cultures. Quality VTE Deep Vein Thrombosis/Pulmonary Embolism Present on Admission: No
[2019-08-31] MEDS: VANCOMYCIN 1,000 MG/200 ML PIGGYBACK 200 MG IV ×2 (00:20→09:05)
[2019-08-31 00:29] VITALS: BP 146/92; PULSE 78; RESP 16; TEMP 36.7; O2SAT 96
[2019-08-31 03:00] VITALS: O2SAT 96
[2019-08-31 04:33] VITALS: BP 151/102; PULSE 80; RESP 16; TEMP 36.8; O2SAT 93
--- NOTE | 2019-08-31 04:46 | PC.NURSE ---
0015, patient stated my arm hurts. IV site looked infiltrated. New site started on Right hand. Patient has bilateral lung sounds diminished. Patient has been hypertensive this night 151/102, Norman RIVERA notified, 10mg of lisinopril ordered for the AM. Pt refused SCD's. Call light is within reach, bed is low and locked.
[2019-08-31] MEDS: DEXTROSE 5%-0.9% NS 1,000 ML 100 ML IV (05:38)
[2019-08-31 07:06] LABS: Add Manual Diff / Slide Review NO; Basophils Absolute Auto 100 /uL (0-100); Basophils Percent Auto 0.6 % (0-2); Eosinophils Absolute Auto 100 /uL (0-450); Eosinophils Percent Auto 0.8 % (2-4); Hematocrit 36.9 % (36-46); Hemoglobin 12.3 g/dL (12.0-16.0); Lymphocytes Absolute Auto 1300 /uL (1100-4500); Mean Corpuscular HGB Conc 33.4 % (30-36); Mean Corpuscular Hemoglobin 27.5 PG (26-34); Mean Corpuscular Volume 82.5 fL (80-100); Monocytes Absolute Auto 500 /uL (0-900); Neutrophils Absolute Auto 7600 /uL (1500-7000); Neutrophils Percent Auto 79.6 % (50-75); Platelet Count 221 X10^3/uL (150-400); Red Blood Cell Count 4.47 X10^6/uL (4.0-5.2); Red Cell Distribution Width 15.9 % (11.6-14.8); White Blood Cell Count 9.6 X10^3/uL (4.5-11.0)
[2019-08-31 07:18] LABS: Blood Urea Nitrogen 8 mg/dL (7-17); Calcium 8.7 mg/dL (8.4-10.2); Carbon Dioxide 23 mmol/L (22-32); Chloride 112 mmol/L (98-107); Estimated Glomerular Filt Rate > 60.0 mL/min (>60); Glucose 148 mg/dL (70-100); HEMOLYSIS < 15 (0-50); Potassium 3.5 mmol/L (3.4-5.1); Sodium 141 mmol/L (137-145)
[2019-08-31 07:30] VITALS: BP 165/102; PULSE 74; RESP 16; TEMP 36.3; O2SAT 95
[2019-08-31 07:53] LABS: Procalcitonin 4.68 ng/mL (<0.5)
[2019-08-31] MEDS: ACETAMINOPHEN 325 MG TABLET 650 MG PO (08:09)
[2019-08-31] MEDS: LISINOPRIL 10 MG TABLET PO (08:09)
[2019-08-31] MEDS: HEPARIN 5,000 UNIT/ML VIAL 5000 UNIT SUBCUT (08:11)
[2019-08-31 08:55] LABS: Vancomycin Trough 7.1 ug/mL (10-20)
[2019-08-31 09:36] VITALS: O2SAT 95
--- NOTE | 2019-08-31 09:36 | PC.NURSE ---
Pt is sleeping, breath sounds are decreased and she does have some fine crackles to her l.lobes. Up with one person assist to use the bathroom, pt has a soar hip so she does use a cane to ambulate. She is steady on her feet. Morning meds given and pt given tylenol for a headache. Trough 7.1 and she is on the same dose of vancomycin but frequency has changed.
--- NOTE | 2019-08-31 10:52 | P.DS_ITS ---
History of Present Illness History of Present Illness Date Patient Seen: 08/31/19 Chief complaint: Chest/Back Pain Narrative: Samantha Singleton is a 49-year-old female with past medical history of hypertension, and right hip pain (SCFE) who presented with fevers and left-sided chest pain. Her fevers and left-sided chest pain started last night. Her chest pain is in the lower /lateral side of her left chest and radiates into the back. It is constant and when she lays on her left side is improved, she feels that is also somewhat worse when she takes a deep breath. She feels short of breath primarily due to the pain. She has had a runny nose and productive cough with yellow sputum over the past 5 days. She tried some ijfh-iqi-jedleoa pain relief at home but this did not help her symptoms much. She denies any nausea, vomiting, diarrhea, or constipation. She has had no urinary frequency or dysuria. She did not get her flu shot this year and she denies recent sick contacts. She has had no travel overseas. She denies diaphoresis. In the emergency room she had a borderline temperature to 100.3 F, and she was tachycardic when ambulatory but not hypoxic. She was mildly tachypneic at times into the mid 20s. Chest x-ray showed a left basilar pneumonia. Her laboratories revealed low leukocytosis to 19.3 with 93% neutrophils, chemistries show a mildly elevated glucose at 1:29 a.m. but was otherwise unremarkable. Troponin was negative. Flu swab was negative. UA showed 0 WBCs but was positive for leuk esterase, and the specimen was cultured. Patient was admitted under observation status for pneumonia. Discharge Providers Provider Date of admission: 08/29/19 14:51 Discharge Date: 08/31/19 Primary care physician: Ana Fuentes PA-C Discharge provider: Claudia Hurtado MD Summary Hospital Course Discharge Diagnosis: 1. Strep pneumonia 2. Hypertension 3. Morbid obesity Hospital Course: Patient is a 49-year-old female presented to the hospital with fever shortness of breath and chest pain. Chest x-ray confirmed pneumonia. Patient had a respiratory panel which confirm strep pneumo. Blood cultures were positive for streptococcal pneumonia. The patient was initially treated with vancomycin and ceftriaxone. She defervesced and had improvement of her pulmonary symptoms. The patient was deemed appropriate for discharge and arrangements were made for her to be discharged home. She will be switched from IV ceftriaxone and vancomycin to Augmentin. The patient was previously prescribed lisinopril 10 mg daily for blood pressure. She admits that she was not taking her medication as prescribed. Patient agrees to take medication at this time. She will follow-up with her primary care physician next week. Status at Discharge Cognitive/behavioral status at discharge: oriented Functional status at discharge: independent ambulation Overall status at discharge: patient is back to baseline Exam Vital Signs (past 8 hours): - 08/31/19 03:00 08/31/19 04:33 08/31/19 07:30 Temperature 98.3 F 97.4 F L Pulse Rate 80 74 Respiratory Rate 16 16 Blood Pressure 151/102 H 165/102 H Pulse Oximetry 96 93 95 08/31/19 09:36 Temperature Pulse Rate Respiratory Rate Blood Pressure Pulse Oximetry 95 Oxygen Delivery Method Room Air Oxygen Flow Rate 0 Narrative Exam Narrative: Pleasant female in no obvious distress Lungs: Clear to auscultation Cardiac exam: Regular rate and rhythm normal S1-S2 Abdomen: Soft nontender nondistended Extremities: No edema Skin exam: No rash Objective Labs Result Diagrams: 08/31/19 06:50 08/31/19 06:50 Labs: Laboratory Results - last 24 hr 08/31/19 08/31/19 08/31/19 06:50 06:50 06:50 WBC 9.6 RBC 4.47 Hgb 12.3 Hct 36.9 MCV 82.5 MCH 27.5 MCHC 33.4 RDW 15.9 H Plt Count 221 Neut % (Auto) 79.6 H Lymph % (Auto) 14.0 L [place] % (Auto) 5.0 Eos % (Auto) 0.8 L Baso % (Auto) 0.6 Neut # (Auto) 7600 H Lymph # (Auto) 1300 [place] # (Auto) 500 Eos # (Auto) 100 Baso # (Auto) 100 Sodium 141 Potassium 3.5 Chloride 112 H Carbon Dioxide 23 BUN 8 Creatinine 0.50 L Estimated GFR > 60.0 BUN/Creatinine Ratio 16.0 Glucose 148 H Calcium 8.7 Procalcitonin 4.68 H Vancomycin Trough 08/31/19 08:23 WBC RBC Hgb Hct MCV MCH MCHC RDW Plt Count Neut % (Auto) Lymph % (Auto) [place] % (Auto) Eos % (Auto) Baso % (Auto) Neut # (Auto) Lymph # (Auto) [place] # (Auto) Eos # (Auto) Baso # (Auto) Sodium Potassium Chloride Carbon Dioxide BUN Creatinine Estimated GFR BUN/Creatinine Ratio Glucose Calcium Procalcitonin Vancomycin Trough 7.1 L Discharge Plan Discharge Plan Patient Disposition: Home Discharge orders & Medications Prescriptions: New lisinopril 10 mg Tablet 10 mg PO DAILY Qty: 30 RF: 0 amoxicillin-pot clavulanate 875-125 mg tablet 1 tab PO BID Qty: 14 RF: 0 Follow up/Referrals: Ana Fuentes PA-C [Primary Care Provider] - Diet/Activity/Treatments Diet: Diet as Tolerated Activity: as tolerated Visit Report/Discharge Packet Instructions: DI for Pneumonia -- Adult Discharge Data Primary Care Provider: Ana Fuentes Quality VTE Deep Vein Thrombosis/Pulmonary Embolism Present on Admission: No
--- NOTE | 2019-08-31 11:23 | CM.DPC ---
DCP: continued: Met with pt as planned after noting d/c to home setting. Her other Marcos Robins, with whom pt lives, was at bedside. Introduced self and role. Pt confirms she is feeling much better than when she arrived. She will be following up with her PCP: clarified by her as Scotoer Donnelly/[facility]. Pt is still completing treatment. She says she has been told by nursing staff that she will be ready for d/c to home by about 1230. P: home today..will follow prn until pt leaves.
== END 2019-08-31 12:30 | disposition home or self-care (01) | DRG 139 ==
LOC: ED 14:35 → AC 14:56
PROVIDERS: Admitting Provider Internal Medicine; Emergency Provider Emergency Medicine; PCP Physician Assistant; Visit Provider Internal Medicine
DX: J13 Pneumonia due to Streptococcus pneumoniae (principal); E66.01 Morbid (severe) obesity due to excess calories; Z68.41 Body mass index [BMI] 40.0-44.9, adult; F17.210 Nicotine dependence, cigarettes, uncomplicated; M25.551 Pain in right hip; I10 Essential (primary) hypertension
CPT/HCPCS: 36415; 71046; 80048; 80053; 80202; 81003; 81015; 82550; 83605; 84145; 84484; 85025; 87040; 87086; 87150; 87186; 87205; 87449; 87502; 87633; 93005; 93010; 93306; 96365; 99284; 99285; J0696; J1644

== ENCOUNTER 2020-04-27 04:24 | Emergency (ER) | payer OTHER, MEDICAID, SELFPAY ==
[2019-08-29 17:27] VITALS: BMI 42.0
[2020-04-27] VITALS (8 sets, daily range): BP systolic 142–194; BP diastolic 68–98; PULSE 67–82; RESP 14; TEMP 36.6; O2SAT 89–99; BMI 42.5
[2020-04-27] MEDS: SODIUM CHLORIDE 0.9% 1,000 ML 1000 ML IV (04:30)
--- NOTE | 2020-04-27 04:48 | ED.FEMALEGU ---
HPI - Female Genitourinary General Chief complaint: Urogenital-Female Stated complaint: Kidney stone Time Seen by Provider: 04/27/20 04:30 Source: patient and EMS Mode of arrival: EMS Limitations: no limitations History of Present Illness HPI Narrative: 50-year-old female daily smoker with history of morbid obesity, hypertension, recently diagnosed large left-sided kidney stone presents by EMS for evaluation of worsening left flank pain. She denies any provocation, palliation and states it radiates a bit into her groin. She has had nausea but denies any vomiting. She denies any fever or chills. She denies dysuria, frequency or urgency. She denies any constipation or diarrhea. MD Complaint: other Onset (ago): hour(s) Female Urogenital Radiation: L Flank Severity: severe Quality: Sharp Duration: constant Relieving factors: none Exacerbating factors: none Patient : No Related Data Previous Rx's Medication Instructions Recorded amoxicillin-pot clavulanate 1 tab PO BID #14 tab 08/31/19 lisinopril 10 mg PO DAILY #30 tab 08/31/19 ketorolac 10 mg PO Q6H PRN #14 tab 04/27/20 Allergies Allergy/AdvReac Type Severity Reaction Status Date / Time No Known Drug Allergies Allergy Verified 08/29/19 11:13 Review of Systems Constitutional Constitutional: Denies chills, Denies fatigue, Denies fever(s), Denies frequent falls, Denies lethargy and Denies weakness Eyes Eyes: Denies change in vision, Denies eye discharge, Denies irritation and Denies loss of vision ENT Ears, Nose, Mouth, and Throat: Denies change in voice, Denies dizziness, Denies neck pain, Denies sore throat and Denies throat swelling Cardiovascular Cardiovascular: Denies chest pain, Denies irregular heart rhythm, Denies lightheadedness, Denies palpitations, Denies dyspnea, Denies dyspnea on exertion and Denies orthopnea Respiratory Respiratory: Denies cough, Denies dyspnea, Denies dyspnea on exertion and Denies wheezing Gastrointestinal Gastrointestinal: Denies abdominal pain, Denies change in bowel habits, Denies diarrhea, Reports nausea and Denies vomiting Genitourinary Comments: Left flank pain Musculoskeletal Musculoskeletal: Denies neck pain and Denies numbness Integumentary/Breasts Skin/Breast: Denies pruritus, Denies erythema, Denies rash and Denies wounds Neurologic Neurologic: Denies behavioral changes, Denies confusion, Denies dizziness, Denies frequent falls, Denies loss of vision, Denies numbness and Denies weakness Psychiatric Psychiatric: Denies anxiety, Denies behavioral changes, Denies confusion, Denies depression, Denies homicidal ideation and Denies suicidal ideation Endocrine Endocrine: Denies fatigue, Denies flushing and Denies palpitations Hematologic/Lymphatic Hematologic/Lymphatic: Denies easy bruising Allergic/Immunologic Allergic/Immunologic: Denies urticaria, Denies throat swelling and Denies wheezing Patient History Medical History Chronic right hip pain (Acute) H/O slipped capital femoral epiphysis (SCFE) (Acute) Hypertension (Acute) alcohol intake frequency: 0-2 drinks per day Substance Use Type: methamphetamine Exam Narrative Exam Narrative: GENERAL: [50] year old patient appears stated age. Well-nourished, well-developed patient, in mild distress. HEAD: Atraumatic. Normocephalic. EYES: Pupils equal round and reactive. Extraocular motions intact. No scleral icterus. No injection or drainage. ENT: Nose without bleeding, purulent drainage. Throat without erythema, tonsillar hypertrophy or exudate. Airway patent. NECK: Trachea midline. Non tender CARDIOVASCULAR: Regular rate and rhythm without murmurs, gallops, or rubs. RESPIRATORY: Clear to auscultation. Breath sounds equal bilaterally. No wheezes, rales, or rhonchi. GASTROINTESTINAL: Abdomen soft, left lower quadrant tenderness to palpation, nondistended. EXTREMITIES: No edema or joint tenderness. BACK: Nontender without deformity or crepitance. No flank tenderness. NEURO: AOx3. SKIN: No rash or erythema of visible areas Initial Vital Signs Initial Vital Signs: Vital Signs Temperature 97.9 F 04/27/20 04:24 Pulse Rate 79 04/27/20 04:24 Respiratory Rate 14 04/27/20 04:24 Blood Pressure 194/98 H 04/27/20 04:24 Pulse Oximetry 96 04/27/20 04:24 Course Orders Ordered: ED Orders 04/27/20 04:47 Basic Metabolic Panel Stat Complete Blood Count AUTO DIFF Stat 04/27/20 05:40 Urinalysis and Microscopic Stat Discontinued Medications Sodium Chloride (Normal Saline 0.9%) 1,000 mls @ 1,000 mls/hr IV BOLUS ONE Stop: 04/27/20 05:22 Lidocaine HCl 8.2 ml/ Sodium (Chloride) 58.2 mls @ 349.2 mls/hr IV NOW ONE Stop: 04/27/20 04:49 Ketorolac Tromethamine (Toradol) 15 mg IV NOW ONE Stop: 04/27/20 04:24 Vital Signs Vital signs: Vital Signs - 8 hr 04/27/20 04:24 Temperature 97.9 F Pulse Rate 79 Respiratory Rate 14 Blood Pressure 194/98 H Pulse Oximetry 96 MDM - Female Genitourinary Lab Data Result diagrams: 04/27/20 04:47 04/27/20 04:47 Labs: Lab Results 04/27/20 04/27/20 04/27/20 Range/Units 04:47 04:47 05:40 WBC 7.6 (4.5-11.0) X10^3/uL RBC 4.53 (4.0-5.2) X10^6/uL Hgb 12.4 (12.0-16.0) g/dL Hct 38.1 (36-46) % MCV 84.1 (80-100) fL MCH 27.4 (26-34) PG MCHC 32.6 (30-36) % RDW 15.2 H (11.6-14.8) % Plt Count 204 (150-400) X10^3/uL Neut % (Auto) 71.2 (50-75) % Lymph % (Auto) 20.9 L (25-40) % [place] % (Auto) 5.6 (3-14) % Eos % (Auto) 1.7 L (2-4) % Baso % (Auto) 0.6 (0-2) % Neut # (Auto) 5400 (1624-9308) /uL Lymph # (Auto) 1600 (6661-7633) /uL [place] # (Auto) 400 (0-900) /uL Eos # (Auto) 100 (0-450) /uL Baso # (Auto) 0 (0-100) /uL Sodium 139 (137-145) mmol/L Potassium 3.7 (3.4-5.1) mmol/L Chloride 107 (98-107) mmol/L Carbon Dioxide 27 (22-32) mmol/L BUN 12 (7-17) mg/dL Creatinine 0.58 (0.52-1.04) mg/dL Estimated GFR > 60.0 (>60) mL/min BUN/Creatinine Ratio 20.7 (6-22) Glucose 130 H (70-100) mg/dL Calcium 8.7 (8.4-10.2) mg/dL Urine Color Yellow Urine Appearance Clear Urine pH 6.0 (4.5-8.0) Ur Specific [place] <=1.005 (1.000-1.035) Urine Protein Negative (Negative) Urine Glucose (UA) Negative (Negative) g/dL Urine Ketones Negative (NEGATIVE) Urine Occult Blood 2+ H (Negative) Urine Nitrate Negative (Negative) Urine Bilirubin Negative (NEGATIVE) Urine Urobilinogen 0.2 (0.2) E.U./dL Ur Leukocyte Esterase Negative (NEGATIVE) Urine RBC None seen (0-5/HPF) Urine WBC None seen (0-5/HPF) Ur Squamous Epith Cells 0-1 /hpf (0-5/HPF) Urine Bacteria None seen (None) Ur Culture Indicated? Cult not indicated Micro UA Comment Microscopic normal MDM Narrative Medical decision making narrative: Patient feeling tremendous relief after above-stated therapies. She shows no sign of sepsis. She has no evidence of infection in her urine and no renal failure on labs. She has been given contact information for local Urology and a prescription for Toradol. Return precautions given, questions answered to her apparent satisfaction Discharge Plan Departure Patient Disposition: Home Clinical Impression: Kidney stone on left side Instructions: DI for Kidney Stones Activity Restrictions/Additional Instructions: *You have been diagnosed with [renal colic, presumably from known kidney stone] *What to do: *Take medications as directed: [facility] received your prescription *Follow up with your primary care provider in 2-3 days, call for an appointment. Let them know you were seen in the Emergency Department and that we ask that you be seen in follow up *Return to ER if you should have any new, worsening or concerning symptoms Prescriptions: New ketorolac 10 mg tablet 10 mg PO Q6H PRN (Reason: pain) Qty: 14 RF: 0 No Action lisinopril 10 mg Tablet 10 mg PO DAILY Qty: 30 RF: 0 amoxicillin-pot clavulanate 875-125 mg tablet 1 tab PO BID Qty: 14 RF: 0 Referrals: Ana Fuentes PA-C [Primary Care Provider] - Satish Alvarez MD [Physician] -
[2020-04-27 04:59] LABS: Add Manual Diff / Slide Review NO; Basophils Absolute Auto 0 /uL (0-100); Basophils Percent Auto 0.6 % (0-2); Eosinophils Absolute Auto 100 /uL (0-450); Eosinophils Percent Auto 1.7 % (2-4); Hematocrit 38.1 % (36-46); Hemoglobin 12.4 g/dL (12.0-16.0); Lymphocytes Absolute Auto 1600 /uL (1100-4500); Lymphocytes Percent Auto 20.9 % (25-40); Mean Corpuscular HGB Conc 32.6 % (30-36); Mean Corpuscular Hemoglobin 27.4 PG (26-34); Mean Corpuscular Volume 84.1 fL (80-100); Monocytes Absolute Auto 400 /uL (0-900); Monocytes Percent Auto 5.6 % (3-14); Neutrophils Absolute Auto 5400 /uL (1500-7000); Neutrophils Percent Auto 71.2 % (50-75); Platelet Count 204 X10^3/uL (150-400); Red Blood Cell Count 4.53 X10^6/uL (4.0-5.2); Red Cell Distribution Width 15.2 % (11.6-14.8); White Blood Cell Count 7.6 X10^3/uL (4.5-11.0)
[2020-04-27 05:11] LABS: BUN Creatinine Ratio 20.7 (6-22); Blood Urea Nitrogen 12 mg/dL (7-17); Calcium 8.7 mg/dL (8.4-10.2); Carbon Dioxide 27 mmol/L (22-32); Chloride 107 mmol/L (98-107); Estimated Glomerular Filt Rate > 60.0 mL/min (>60); Glucose 130 mg/dL (70-100); HEMOLYSIS < 15 (0-50); Potassium 3.7 mmol/L (3.4-5.1); Sodium 139 mmol/L (137-145)
[2020-04-27 05:45] LABS: Bacteria Urine None Seen; RBC Urine None Seen (0-5/HPF); WBC Urine None Seen (0-5/HPF)
[2020-04-27 05:46] LABS: Appearance Urine UA CLEAR; Bilirubin Urine UA NEGATIVE (NEGATIVE); Color Urine UA YELLOW; Glucose Urine UA NEGATIVE (Negative); Ketones Urine UA NEGATIVE (NEGATIVE); Leukocyte Esterase Urine UA NEGATIVE (NEGATIVE); Nitrite Urine UA NEGATIVE (Negative); Occult Blood Urine UA 2+ (Negative); Protein Urine UA NEGATIVE (Negative); Specific Gravity Urine UA <=1.005 (1.000-1.035); Urobilinogen Urine UA 0.2 E.U./dL (0.2)
[2020-04-27 05:54] LABS: Culture Indicated Urine Cult Not Indicated; Squamous Epithelial Cell Urine 0-1 /HPF (0-5/HPF); Urine Comments Microscopic Normal
[2020-04-27] MEDS: KETOROLAC 60 MG/2 ML VIAL 15 MG IV (06:30)
--- NOTE | 2020-04-27 06:38 | PC.NURSE ---
Pt has been dozing in bed since arrival. Pt reports pain 2/10. States she feels better and is ready to go home. Sister Shey phoned for a ride per patient request.
== END 2020-04-27 07:14 | disposition home or self-care (01) ==
LOC: ED 06:38
PROVIDERS: Emergency Provider Emergency Medicine; PCP Physician Assistant; Referring Provider Emergency Medicine
DX: N20.0 Calculus of kidney (principal); E66.01 Morbid (severe) obesity due to excess calories; I10 Essential (primary) hypertension; R11.0 Nausea
CPT/HCPCS: 36415; 80048; 81001; 85025; 96361; 96374; 99284; J1885

== ENCOUNTER → 2020-06-17 10:33 | Outpatient (CLI) | payer OTHER, MEDICAID, SELFPAY ==
[2019-08-29 17:27] VITALS: BMI 42.0
--- NOTE | 2020-06-17 | DI.US.S_ITS ---
PROCEDURE: US RENAL COMPLETE INDICATIONS: Calculus of ureter TECHNIQUE: Real-time scanning was performed of the kidneys and bladder, with image documentation. COMPARISON: Outside Film, CT, CT ABDOMEN PELVIS WITH CONTRAST, 04/25/2020, 3:12. [facility], CR, XR RETROGRADE UROGRAPHY, 05/19/2020, 8:31. FINDINGS: Kidneys: Kidneys are normal in size. Right kidney measures 12.2 cm long; left kidney measures 12.3 cm long. Right renal cortical thickness is 1.6 cm; left renal cortical thickness is 1.6 cm. Renal cortical echotexture is normal. No hydronephrosis or nephrolithiasis. No suspicious solid mass lesions. Bladder: Pre-void bladder volume is 131 mL. Post-void residual is 1 mL. Pre-void images demonstrate no intraluminal masses or stones. On pre-void images, both ureteral jets are noted with color Doppler interrogation. (Of note, ureteral jets may not be detectable in up to 25% of cases due to insufficient differences in specific gravity between ureteral and bladder urine). Miscellaneous: No free pelvic fluid. IMPRESSION: 1. No kidney stones identified. 2. No hydronephrosis. 3. No postvoid residual. 4. Both ureteral jets are seen. Dictated by: Gt Madrigal M.D. on 06/17/2020 at 14:42 Approved by: Gt Madrigal M.D. on 06/17/2020 at 14:49
== END ==
PROVIDERS: PCP Nurse Practitioner; Referring Provider Nurse Practitioner; Visit Provider Urology
DX: N20.1 Calculus of ureter (principal)
CPT/HCPCS: 76770

== ENCOUNTER 2024-08-26 09:07 | Emergency (ER) | payer OTHER, MEDICAID, SELFPAY ==
[2019-08-29 17:27] VITALS: BMI 42.0
[2024-08-26] VITALS (9 sets, daily range): BP systolic 175–203; BP diastolic 82–107; PULSE 73–94; RESP 16–18; TEMP 36.7–37.2; O2SAT 93–97; BMI 41.5
--- NOTE | 2024-08-26 09:30 | ED_ITS ---
HPI - Extremity Problem General Chief complaint: Extremity Problem,Nontraumatic Stated complaint: R leg pain t-1wk Time Seen by Provider: 08/26/24 09:25 Source: patient Mode of arrival: Ambulatory History of Present Illness HPI Narrative: 54-year-old female who is here for evaluation of right hip/leg pain for the past week. She reports no specific trauma. Approximately 18 months ago she did have a right total hip arthroplasty. She also had a slip capital femoral epiphysis as a child. This also required surgery at that point. She states that she has discomfort in the left hip that she states feels like it starts at the top of her surgical incision. States it radiates down the outside of her leg. It seems to hurt more in the morning and improves as the day goes on but over the last couple days has been more persistent. She was taken Tylenol/ibuprofen. No urinary symptoms. No fevers. No skin changes. No change in bowel habits. She does smoke methamphetamine but does not inject any illicit substances. Related Data Previous Rx's Medication Instructions Recorded amoxicillin 875 mg-potassium 1 tab PO BID #14 tabs 08/31/19 clavulanate 125 mg tablet lisinopril 10 mg tablet 10 mg PO DAILY #30 tabs 08/31/19 ketorolac 10 mg tablet 10 mg PO Q6H PRN pain #14 tabs 04/27/20 cyclobenzaprine 10 mg tablet 10 mg PO TID PRN muscle spasm #10 08/26/24 tabs methylprednisolone 4 mg tablets in See Rx Instructions PO .COMPLEX 08/26/24 a dose pack (Medrol (Ck)) #21 ea Allergies Allergy/AdvReac Type Severity Reaction Status Date / Time No Known Drug Allergies Allergy Verified 08/29/19 11:13 Review of Systems Review of Systems ROS Unobtainable: All systems reviewed & are unremarkable except as noted in HPI and below Patient History Medical History (Updated 08/26/24 @ 12:42 by Bentley Bhandari DO) H/O slipped capital femoral epiphysis (SCFE) Chronic right hip pain Hypertension Social History household members: family Smoking Status: Current every day smoker alcohol intake: former Smoking Status: Current every day smoker alcohol intake frequency: 0-2 drinks per day Exam Initial Vital Signs Initial Vital Signs: Vital Signs Pulse Rate 94 H 12/09/24 09:12 Blood Pressure 203/104 H 08/26/24 09:12 Pulse Oximetry 94 08/26/24 09:12 Const General: cooperative, comfortable and No ill appearing HENNC Head: normal to inspection and normocephalic Back/Spine/Pelvis Thoracic/Lumbar Spine: No paraspinal tenderness, No thoracic spinal tenderness and No lumbar spinal tenderness Skin Other: Well-healed surgical scars right hip. Rashes consistent with Neuro General: patient alert and patient awake Sensory Exam: no sensory deficits noted Extrem Other: Some to the right hip. Does have of motion. No obvious deformities. Course Orders Ordered: ED Orders 08/26/24 09:36 XR hip w pel if done RT 2V Stat 08/26/24 09:59 Basic Metabolic Panel Stat Complete Blood Count AUTO DIFF Stat Discontinued Medications Acetaminophen (Acetaminophen 325 Mg Tablet) 975 mg PO NOW ONE Stop: 08/26/24 11:49 Last Admin: 08/26/24 11:53 Dose: 975 mg Documented By: ES Vital Signs Vital signs: Vital Signs - 8 hr 08/26/24 09:12 08/26/24 09:12 08/26/24 09:18 Temperature 98.1 F Pulse Rate 94 H 94 H Respiratory Rate 18 Blood Pressure 203/104 H 203/104 H Pulse Oximetry 94 96 Oxygen Delivery Method Room Air 08/26/24 09:30 08/26/24 09:31 08/26/24 09:31 Temperature Pulse Rate 89 85 Respiratory Rate Blood Pressure 178/105 H Pulse Oximetry 97 96 Oxygen Delivery Method 08/26/24 10:00 08/26/24 10:00 08/26/24 10:30 Temperature Pulse Rate 80 Respiratory Rate Blood Pressure 177/82 H 182/107 H Pulse Oximetry 97 Oxygen Delivery Method 08/26/24 10:30 08/26/24 11:00 08/26/24 11:00 Temperature Pulse Rate 89 81 Respiratory Rate Blood Pressure 196/105 H Pulse Oximetry 94 93 Oxygen Delivery Method 08/26/24 11:30 08/26/24 11:30 Temperature Pulse Rate 73 Respiratory Rate Blood Pressure 186/99 H Pulse Oximetry 96 Oxygen Delivery Method Room Air MDM - Extremity (Nontraumatic) Lab Data 08/26/24 09:59 08/26/24 09:59 Labs: Lab Results 08/26/24 Range/Units 09:59 WBC 6.3 (4.5-11.0) X10^3/uL RBC 5.27 H (4.0-5.2) X10^6/uL Hgb 14.7 (12.0-16.0) g/dL Hct 45.3 (36-46) % MCV 85.9 (80-100) fL MCH 27.8 (26-34) PG MCHC 32.4 (30-36) % RDW 15.2 H (11.6-14.8) % Plt Count 218 (150-400) X10^3/uL Neut % (Auto) 66.1 (50-75) % Lymph % (Auto) 25.7 (25-40) % [place] % (Auto) 5.6 (3-14) % Eos % (Auto) 1.7 L (2-4) % Baso % (Auto) 0.9 (0-2) % Neut # (Auto) 4200 (2678-0346) /uL Lymph # (Auto) 1600 (6907-7432) /uL [place] # (Auto) 400 (0-900) /uL Eos # (Auto) 100 (0-450) /uL Baso # (Auto) 100 (0-100) /uL Sodium 136 L (137-145) mmol/L Potassium 3.8 (3.4-5.1) mmol/L Chloride 105 (98-107) mmol/L Carbon Dioxide 27 (22-32) mmol/L BUN 11 (7-17) mg/dL Creatinine 0.65 (0.52-1.04) mg/dL Estimated GFR > 60 (>60) mL/min BUN/Creatinine Ratio 16.9 (6-22) Glucose 204 H (70-100) mg/dL Calcium 8.8 (8.4-10.2) mg/dL Imaging Data Extremity x-ray #1: Radiologist's Impression: PROCEDURE: XR HIP W PEL IF DONE RT 2V INDICATIONS: hx of PETER now with pain TECHNIQUE: AP pelvis with lateral view(s) of the right hip(s). COMPARISON: None. FINDINGS: Bones: Total right hip arthroplasty without evidence of hardware failure. No fractures or dislocations. Pelvic ring appears intact. No suspicious bony lesions. Enthesopathy is noted at the proximal right femur and the right iliac wing. Soft tissues: The visualized bowel gas pattern is normal. No suspicious soft tissue calcifications. IMPRESSION: 1. No acute hardware or osseous abnormality. 2. Moderate to severe enthesopathy involving the right iliac bone and the right proximal femur. MDM Narrative Medical decision making narrative: X-ray shows no acute fracture or dislocation. Labs are unremarkable. Physical exam was not consistent with an infection. She was having some radicular symptoms which I suspect is related to a sciatic nerve irritation. I discussed this with the patient. We discussed the use of Tylenol and ibuprofen. Will send her home on steroids and muscle relaxers as well. Recommended she talk with her primary doctor about a referral to see physical therapy. She expressed understanding and agreement with plan. Discharge Plan Departure Patient Disposition: Home Clinical Impression: Acute pain of right hip Instructions: DI for Hip Pain Activity Restrictions/Additional Instructions: Your x-rays today are very reassuring. I do recommend continue conservative measures such as [id number] nonsteroidal anti-inflammatories and Tylenol. Also recommend light stretching. You may need to contact your primary care doctor for referral to see Physical therapy if your symptoms continue. Return to the emergency department for new symptoms. Prescriptions: New cyclobenzaprine 10 mg tablet 10 mg PO TID PRN (Reason: muscle spasm) Qty: 10 0RF methylprednisolone [Medrol (Ck)] 4 mg tablets,dose pack See Rx Instructions .ROUTE .COMPLEX Qty: 21 0RF Rx Instructions: for 6 days No Action lisinopril 10 mg Tablet 10 mg PO DAILY Qty: 30 0RF amoxicillin-pot clavulanate 875-125 mg tablet 1 tab PO BID Qty: 14 0RF ketorolac 10 mg tablet 10 mg PO Q6H PRN (Reason: pain) Qty: 14 0RF Referrals: Perla Figueroa ARNP [Primary Care Provider] - Stand Alone Forms: Patient Portal/API/Survey
--- NOTE | 2024-08-26 09:36 | DI.RAD.S_ITS ---
PROCEDURE: XR HIP W PEL IF DONE RT 2V INDICATIONS: hx of PETER now with pain TECHNIQUE: AP pelvis with lateral view(s) of the right hip(s). COMPARISON: None. FINDINGS: Bones: Total right hip arthroplasty without evidence of hardware failure. No fractures or dislocations. Pelvic ring appears intact. No suspicious bony lesions. Enthesopathy is noted at the proximal right femur and the right iliac wing. Soft tissues: The visualized bowel gas pattern is normal. No suspicious soft tissue calcifications. IMPRESSION: 1. No acute hardware or osseous abnormality. 2. Moderate to severe enthesopathy involving the right iliac bone and the right proximal femur. Dictated by: Felix Singh M.D. on 08/26/2024 at 10:44 Approved by: Felix Singh M.D. on 08/26/2024 at 10:46
[2024-08-26 10:13] LABS: Add Manual Diff / Slide Review NO; Basophils Absolute Auto 100 /uL (0-100); Basophils Percent Auto 0.9 % (0-2); Eosinophils Absolute Auto 100 /uL (0-450); Eosinophils Percent Auto 1.7 % (2-4); Hematocrit 45.3 % (36-46); Hemoglobin 14.7 g/dL (12.0-16.0); Lymphocytes Absolute Auto 1600 /uL (1100-4500); Lymphocytes Percent Auto 25.7 % (25-40); Mean Corpuscular HGB Conc 32.4 % (30-36); Mean Corpuscular Hemoglobin 27.8 PG (26-34); Mean Corpuscular Volume 85.9 fL (80-100); Monocytes Absolute Auto 400 /uL (0-900); Monocytes Percent Auto 5.6 % (3-14); Neutrophils Absolute Auto 4200 /uL (1500-7000); Neutrophils Percent Auto 66.1 % (50-75); Platelet Count 218 X10^3/uL (150-400); Red Blood Cell Count 5.27 X10^6/uL (4.0-5.2); Red Cell Distribution Width 15.2 % (11.6-14.8); White Blood Cell Count 6.3 X10^3/uL (4.5-11.0)
[2024-08-26 10:27] LABS: BUN Creatinine Ratio 16.9 (6-22); Blood Urea Nitrogen 11 mg/dL (7-17); Calcium 8.8 mg/dL (8.4-10.2); Carbon Dioxide 27 mmol/L (22-32); Chloride 105 mmol/L (98-107); Estimated Glomerular Filt Rate > 60 mL/min (>60); Glucose 204 mg/dL (70-100); HEMOLYSIS < 15 (0-50); Potassium 3.8 mmol/L (3.4-5.1); Sodium 136 mmol/L (137-145)
[2024-08-26] MEDS: ACETAMINOPHEN 325 MG TABLET 975 MG PO (11:53)
== END 2024-08-26 12:53 | disposition home or self-care (01) ==
PROVIDERS: Emergency Provider Emergency Medicine; PCP Nurse Practitioner
DX: M25.551 Pain in right hip (principal); Z96.641 Presence of right artificial hip joint
CPT/HCPCS: 36415; 73502; 80048; 85025; 99283; 99284